=== PATIENT | female | born 1960 | race African-American/Black ===

== ENCOUNTER 2016-08-03 15:37 | Emergency (ER) | payer OTHER ==
[~2016-08-03] VITALS: Ht 157.5 cm; Wt 49.4 kg
--- NOTE | ~2016-08-03 | EKG ---
[place] [address] [address] [facility] [place] [address] ELECTROCARDIOGRAM REPORT Name: WYATT AMATO Room #: [id number] Admission: 08/03/16 Attend Phys: Discharge: 08/03/16 Date of : 62 Report #: [id number] THIS REPORT FOR: //name// [facility] ED Test Date: 2016-08-03 Test Time: 16:50:14 Pat Name: WYATT AMATO Department: Room: Gender: F Documentation Analyst: LIZETH : 1960 Requested By: Luis Mckinney Order Number: [id number] MD: Get Conklin Measurements Intervals [place] Rate: 110 P: 63 VA: 135 QRS: 56 QRSD: 83 T: 52 QT: 350 QTc: 474 Interpretive Statements Sinus tachycardia Baseline wander in lead(s) V6 Compared to ECG 06/14/2016 10:38:37 No significant changes Electronically Signed On 08-04-2016 7:56:59 CDT by Get Conklin [email or web address] <ELECTRONICALLY SIGNED> By: Get Conklin MD, [facility] 08/04/16 0756 [id number] 49 Get Conklin MD, FACC /EPI
[~2016-08-03 15:37] MED LIST: COZAAR 50 MG TA50 M1 PO; KEPPRA 500 MG500 M1 PO; LANTUS SOL100 UNIT/1 SQ; LEXAPRO5 MG PO; LIPITOR 20 MG T20 M1 PO; LYRICA 50 MG50 MG PO; METOPROLOL-HCT1 EACH PO; NORVASC5 MG PO; NOVOLOG100 UNIT/1 SUBQ; PROAIR HFA8.5 GM PO; ZOFRAN ODT4 MG DISSOLVE
[2016-08-03 16:48] LABS: HEMATOCRIT 35.1 % (37.0-47.0); HEMOGLOBIN 11.8 gm/dL (12.0-15.0); MCH 31.5 pg (26.0-34.0); MCHC 33.7 g/dL (28.0-37.0); MCV 93.4 fL (80.0-100.0); PLATELET COUNT 229 thou/uL (150-400); RBC 3.75 mil/uL (4.20-5.00); RDW 16.4 % (10.5-14.5); WBC 8.8 thou/uL (4.0-11.0)
[2016-08-03 16:56] LABS: MANUAL DIFF YES
[2016-08-03 17:01] LABS: ANION GAP 9 mmol/L (7-16); BUN 41 mg/dL (7-18); CALCIUM 9.1 mg/dL (8.5-10.1); CHLORIDE 103 mmol/L (98-107); CO2 29 mmol/L (21-32); CREATININE 3.3 mg/dL (0.6-1.0); GLUCOSE 164 mg/dL (74-106); POTASSIUM 4.1 mmol/L (3.5-5.1); SODIUM 141 mmol/L (136-145)
[2016-08-03 17:12] LABS: ALBUMIN 3.2 g/dL (3.4-5.0); ALKALINE PHOSPHATASE 104 U/L (46-116); DIRECT BILIRUBIN 0.1 mg/dL (<0.1-0.3); NT-PRO BRAIN NAT PEPTIDE 2549 pg/mL (<300); SGOT 15 U/L (15-37); SGPT 17 U/L (30-65); TOTAL BILIRUBIN 0.6 mg/dL (<0.1-1.0); TOTAL PROTEIN 7.8 g/dL (6.4-8.2); TROPONIN-I < 0.04 ng/mL (<0.04-0.07)
[2016-08-03 17:13] LABS: ABSOLUTE NEUTROPHILS 6.2 thou/uL (1.4-8.2); ANISOCYTOSIS 1+; TOTAL CELL COUNT 100
[2016-08-03] MEDS ORDERED: DIVALPROEX SOD500 MG PO (17:53)
[2016-08-03] MEDS ORDERED: KEPPRA 500 MG500 M1 IVPB (17:54)
== END 2016-08-03 19:32 | disposition home or self-care (01) ==
LOC: ER 15:37
PROVIDERS: Nurse Practitioner
DX: R56.9 Unspecified convulsions (principal); E10.22 Type 1 diabetes mellitus with diabetic chronic kidney disease; I10 Essential (primary) hypertension; K21.9 Gastro-esophageal reflux disease without esophagitis; F32.9 Major depressive disorder, single episode, unspecified; E78.5 Hyperlipidemia, unspecified; Z88.6 Allergy status to analgesic agent; Z87.891 Personal history of nicotine dependence; Z99.2 Dependence on renal dialysis

== ENCOUNTER 2019-08-01 14:46 | Emergency (ER) | payer OTHER ==
[~2019-08-01] VITALS: Ht 149.9 cm; Wt 54.4 kg
[~2019-08-01 14:46] MED LIST changes: +DIVALPROEX SOD500 MG PO; +KEPPRA 500 MG500 M1 IVPB
[2019-08-01 16:23] LABS: ABSOLUTE NEUTROPHILS 5.1 thou/uL (1.4-8.2); EOSINOPHILS 2.6 % (0.0-3.0); HEMATOCRIT 34.4 % (37.0-47.0); HEMOGLOBIN 11.2 gm/dL (12.0-15.0); LYMPHOCYTES 14.3 % (24.0-44.0); MCH 31.3 pg (26.0-34.0); MCHC 32.6 g/dL (28.0-37.0); MCV 95.9 fL (80.0-100.0); PLATELET COUNT 251 thou/uL (150-400); POLYS 73.1 % (36.0-66.0); RBC 3.58 mil/uL (4.20-5.00); RDW 15.2 % (10.5-14.5)
[2019-08-01] MEDS ORDERED: TYLENOL325 MG PO (16:26)
[2019-08-01] MEDS ORDERED: TRADJENTA5 MG (16:32)
[2019-08-01] MEDS ORDERED: SYMBICORT80 MCG/4.1 INH (16:32)
[2019-08-01] MEDS ORDERED: RENVELA800 MG PO (16:32)
[2019-08-01] MEDS ORDERED: TRESIBA FL100 UNIT/1 SUBQ (16:33)
[2019-08-01] MEDS ORDERED: TRAZODONE HCL50 MG PO (16:33)
[2019-08-01 16:36] LABS: CALCIUM 9.4 mg/dL (8.5-10.1); CREATININE 4.2 mg/dL (0.6-1.0); POTASSIUM 4.7 mmol/L (3.5-5.1)
[2019-08-01 16:38] LABS: MAGNESIUM 2.2 mg/dL (1.8-2.4)
[2019-08-01 18:23] VITALS: BP 160/74
--- NOTE | 2019-08-02 09:57 | EKG ---
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
== END 2019-08-01 18:23 | disposition home or self-care (01) ==
LOC: ER 14:46
PROVIDERS: Emergency Medicine
DX: R56.9 Unspecified convulsions (principal); I12.0 Hypertensive chronic kidney disease with stage 5 chronic kidney disease or end stage renal disease; E11.40 Type 2 diabetes mellitus with diabetic neuropathy, unspecified; E11.22 Type 2 diabetes mellitus with diabetic chronic kidney disease; E78.5 Hyperlipidemia, unspecified; K21.9 Gastro-esophageal reflux disease without esophagitis; N18.6 End stage renal disease; F32.9 Major depressive disorder, single episode, unspecified; Z99.2 Dependence on renal dialysis; Z79.4 Long term (current) use of insulin; Z87.891 Personal history of nicotine dependence; Z88.6 Allergy status to analgesic agent